=== PATIENT | female | born 1950 | race Caucasian/White ===

== ENCOUNTER 2022-01-17 10:04 | Emergency (ER) | payer OTHER ==
[~2022-01-17] VITALS: Ht 165.1 cm; Wt 66.7 kg
[2022-01-17] MEDS ORDERED: COZAAR100 MG (10:13)
[2022-01-17] MEDS ORDERED: GLUMETZA500 MG (10:13)
[2022-01-17] MEDS ORDERED: ATORVASTATIN CA40 MG (10:13)
[2022-01-17] MEDS ORDERED: HYDROCHLOROTHIA25 MG (10:13)
== END 2022-01-17 14:01 | disposition home or self-care (01) ==
LOC: ER 10:04
DX: R05.9 Cough, unspecified (principal); Z20.822 Contact with and (suspected) exposure to COVID-19; Z88.8 Allergy status to other drugs, medicaments and biological substances; E11.9 Type 2 diabetes mellitus without complications; Z79.84 Long term (current) use of oral hypoglycemic drugs; I10 Essential (primary) hypertension

== ENCOUNTER 2024-05-25 15:09 | Emergency (ER) | payer OTHER ==
[~2024-05-25] VITALS: Ht 157.5 cm; Wt 68.0 kg
[~2024-05-25 15:09] MED LIST: ATORVASTATIN CA40 MG; COZAAR100 MG; GLUMETZA500 MG; HYDROCHLOROTHIA25 MG
[2024-05-25] MEDS ORDERED: DIPHENHYDRAMINE HCL 25 MG CAPSULE PO ONE (16:45)
== END 2024-05-25 18:38 | disposition home or self-care (01) ==
LOC: ER 15:09
DX: L25.9 Unspecified contact dermatitis, unspecified cause (principal); I10 Essential (primary) hypertension; E11.9 Type 2 diabetes mellitus without complications; Z79.84 Long term (current) use of oral hypoglycemic drugs; Z88.8 Allergy status to other drugs, medicaments and biological substances